=== PATIENT | female | born 1995 | race Caucasian/White ===

== ENCOUNTER 2018-12-23 07:09 | Day surgery (SDC) | payer OTHER ==
--- NOTE | 2018-12-23 06:06 | POSTANESTH ---
Post Anesthetic Evaluation Cardiovascular Status: Similar to Pre-Op Cond, Tx Hyper/Hypo-tension Respiratory Status: Normal, Stable Level of Consciousness/Mental Status: Can Participate in Eval, Mildly Sleepy, Arousable Pain Control: Adequate, Prn Tx Ordered Nausea/Vomiting Control: Adequate, Prn Tx Ordered Complications Possibly Related to Anesthesia: None Noted
--- NOTE | 2018-12-23 06:08 | PDANEPAE ---
ANE History of Present Illness 23 yo female with h/o IBS-like symptoms and gastric polyp ANE Past Medical History - Cardiovascular History Hx Hypertension: Yes Hx Arrhythmias: No Hx Chest Pain: No Hx Coronary Artery / Peripheral Vascular Disease: No Hx CHF / Valvular Disease: No Hx Palpitations: No Cardiovascular History Comment: hypercholesterolemia - Pulmonary History Hx COPD: No Hx Asthma/Reactive Airway Disease: No Hx Recent Upper Respiratory Infection: No Hx Oxygen in Use at Home: No Hx Sleep Apnea: No Sleep Apnea Screening Result - Last Documented: Negative - Neurologic History Hx Cerebrovascular Accident: No Hx Seizures: No Hx Dementia: No - Endocrine History Hx Diabetes: No Hypothyroid: No Hyperthyroid: No Obesity: mild - Renal History Hx Renal Disorders: No - Liver History Hx Hepatic Disorders: No - Neurological & Psychiatric Hx Hx Neurological and Psychiatric Disorders: No - Cancer History Hx Cancer: No - Congenital Disorder History Hx Congenital Disorders: No - GI History Hx Gastrointestinal Disorders: Yes Gastrointestinal History Comment: gastric polyp. HX GI CRAMPING - Other Health History Other Health History: POSSIBLE ENDOMETROSIS - Chronic Pain History Chronic Pain: Yes (STOMACH/PELVIC CRAMPS) - Surgical History Prior Surgeries: EGD 07/2018. WISDOM TEETH ANE Review of Systems Review of Systems: - Exercise capacity METS (RN): 4 METS - Systems Constitutional: Reports: no symptoms Cardiac: Reports: no symptoms ANE Patient History - Allergies Allergies/Adverse Reactions: No Known Allergies Allergy (Unverified 12/13/18 11:24) - Home Medications Home Medications: Atorvastatin Calcium DAILY 12/13/18 [Last Taken 12/23/18] Bcp DAILY 12/13/18 [Last Taken 12/23/18] Dicyclomine BID 12/13/18 [Last Taken 12/23/18] Losartan Potassium HS 12/13/18 [Last Taken 12/23/18] buPROPion DAILY 12/13/18 [Last Taken 12/22/18] Omeprazole 12/23/18 [Last Taken 12/23/18] - NPO status NPO Since - Liquids (Date): 12/23/18 NPO Since - Liquids (Time): 05:00 (sip of water with morning meds) - Anes Hx Anes Hx: no prior problems - Smoking Hx Smoking Status: Never smoked Marijuana use: No - Family Anes Hx Family Anes Hx: neg - N/A Family Hx Anesthesia Complications: NEG ANE Labs/Vital Signs - Vital Signs Vital Signs: reviewed preoperatively; see RN documention for details Blood Pressure: 155/112 Height: 147.32 cm Weight: 73.482 kg ANE Physical Exam - Airway Neck exam: FROM Mallampati Score: Class 2 Mouth exam: normal dental/mouth exam - Pulmonary Pulmonary: clear to auscultation - Cardiovascular Cardiovascular: regular rate and rhythym - ASA Status ASA Status: II ANE Anesthesia Plan Anesthesia Plan: GA with mask Total IV Anesthesia: Yes
[2018-12-23] MEDS ORDERED: LR 1,000 ML IV ONE (07:28)
[2018-12-23] MEDS ORDERED: INDOMETHACIN 50 MG SUPP PR PRN (08:40)
--- NOTE | 2018-12-23 08:40 | PDGENHP ---
History & Physical Chief Complaint: gastric subepithelial lesion History of Present Illness: 23 year old female presents for evaluation of a gastric subepithelial lesion. Pertinent Past, Social, Family History: PMHx: HTN, hyperlipidemia. Relevant Physical Exam: HEENT: anicteric. CV: RRR +s1s2. lungs: CTAB no w/r/ r. Abd: soft, nt, + bs Cardiorespiratory Assessment: ASA 2
[2018-12-23] MEDS ORDERED: NS 500 ML IV SCH (08:45)
[2018-12-23] MEDS ORDERED: MIDAZOLAM 2 MG/2 ML VIAL IVP ONE (08:45)
[2018-12-23] MEDS ORDERED: PROPOFOL/EMULSION 500 MG/50 ML BOTTLE IV ONE (08:49)
[2018-12-23] MEDS ORDERED: LIDOCAINE 2% 5 ML SDV ONE (08:49)
[2018-12-23] MEDS ORDERED: PROPOFOL 200 MG/20 ML VIAL ONE ×2 (09:24→09:41)
[2018-12-23] MEDS ORDERED: LR 500 ML IV PRN (09:57)
[2018-12-23] MEDS ORDERED: NALOXONE HCL 0.4 MG/ML INJ IVP PRN (09:57)
[2018-12-23] MEDS ORDERED: ACETAMINOPHEN 500 MG TAB PO PRN (09:57)
[2018-12-23] MEDS ORDERED: ONDANSETRON 4 MG/2 ML VIAL IVP PRN (09:57)
[2018-12-23] MEDS ORDERED: ALBUTEROL 3 ML DEYVIAL IH PRN (09:57)
--- NOTE | 2018-12-23 10:28 | GIREPORT ---
Formerly [facility] Surgical Services - Endoscopy Department Patient Name: La Patel Procedure Date: 12/23/2018 8:27 AM Patient Type: Outpatient Attending MD/ ER Physician: Jerald Mcdaniel MD Procedure: Upper EUS Indications: Submucosal tumor versus extrinsic mass found on endoscopy Patient Profile: 23 year old female with a history of epigastric abdominal pain presents for evaluation of a subepithelial gastric lesion. Providers: Jerald Mcdaniel MD Medicines: Monitored Anesthesia Care Complications: No immediate complications. Estimated blood loss: Minimal. Description of Procedure: After obtaining informed consent, the endoscope was passed under direct vision. Throughout the procedure, the patient's blood pressure, pulse, and oxygen saturations were monitored continuously. The Endoscope was intro duced through the mouth, and advanced to the second part of duodenum. The [facility] er EUS was accomplished without difficulty. The esophagus, stomach, and duodenum were visualized endosonographically. The patient tolerated the procedure well. The Endosonoscope was introduced through the mouth, and advanced to the second part of duodenum. Findings: Endoscopic Finding : The examined esophagus was normal. Patchy mildly erythematous mucosa was found in the entire examined stom ach. A medium-sized hiatal hernia was present. A single 88 mm submucosal papule (nodule) was found on the greater curv ature of the stomach. Biopsies were taken with a cold forceps for histology. The examined duodenum was normal. Endosonographic Finding : There was no sign of significant endosonographic abnormality in the ent danii pancreas. There was no sign of significant endosonographic abnormality in the visualized portion of the liver. There was no sign of significant endosonographic abnormality in the com mon bile duct and in the gallbladder. No lymphadenopathy seen. A round intramural (subepithelial) lesion was found in the antrum of th e stomach. The lesion was mainly hyperechoic (with some pathcy areas that were isoechoic) and measured about 8mm. It was too small to FNA (due to dept h). Estimated Blood Loss: Estimated blood loss was minimal. Post Op Diagnosis: - Normal esophagus. - Medium-sized hiatal hernia. - A single submucosal papule (nodule) found in the stomach. Biopsied. - Normal examined duodenum. - There was no sign of significant pathology in the entire pancreas. - There was no evidence of significant pathology in the visualized port ion of the liver. - There was no sign of significant pathology in the common bile duct an d in the gallbladder. - An intramural (subepithelial) lesion was found in the antrum of the stomach. - Etiology? 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 Will await biopsy res ults. Would repeat EGD/EUS in18 months and if similar would stop surveillance . Recommendation: - Discharge patient to home. - Advance diet as tolerated. - Continue present medications. - Repeat EUS in 18 months - Await path results. - Repeat the upper endoscopic ultrasound for surveillance based on path ology results. Attending Participation: I personally performed the entire procedure. Jerald Mcdaniel MD Jerald Mcdaniel MD 12/23/2018 10:28:08 AM This report has been signed electronicallyJerald Mcdaniel MD Number of Addenda: 0 Note Initiated On: 12/23/2018 8:27 AM [email or web address]
[2018-12-23] MEDS: LABETALOL HCL 5 MG/ML 20 ML MDV IVP SCH ×2 (11:03→11:04)
[2018-12-23 11:31] VITALS: BP 119/83
== END 2018-12-23 11:50 | disposition home or self-care (01) ==
LOC: FSGY 07:09
PROVIDERS: ATTEND Internal Medicine Gastroenterology
PROC: 0DB68ZX Excision of Stomach, Via Natural or Artificial Opening Endoscopic, Diagnostic (ICD-10-PCS; principal; 2018-12-23 08:45)
DX: K31.89 Other diseases of stomach and duodenum (principal); K44.9 Diaphragmatic hernia without obstruction or gangrene; I10 Essential (primary) hypertension; E78.5 Hyperlipidemia, unspecified
CPT/HCPCS: J2250; J2704